=== PATIENT | male | born 1975 | race Caucasian/White ===

== ENCOUNTER 2019-02-18 10:43 | Emergency (ER) | payer BC, OTHER ==
[2019-02-18 10:49] VITALS: BP 122/81; PULSE 72; TEMP 98.1; BMI 25.4
--- NOTE | 2019-02-18 11:19 | PDOC ---
History of Present Illness - General Chief Complaint: Pain, Acute Stated Complaint: LOWER BACK Time Seen by Provider: 02/18/19 10:53 History Source: Patient Exam Limitations: Clinical Condition - History of Present Illness Initial Comments: 02/18/19 11:16 Patient with no significant past medical history present with complaint of 2 weeks history of bilateral lateral flank pain which has been intermittent. Patient was seen by PCP yesterday for symptoms and blood work was done which patient report all blood work was negative and his being scheduled for ultrasound which is scheduled for a week from now but could not wait and came to the emergency room. Denies burning with urination, bloody urine or dysuria. Denies nausea, vomiting, fever or chills. Patient is sexually active. Denies any other symptoms Timing/Duration: other (2 weeks) Past History - Past Medical History Allergies/Adverse Reactions: Allergies Allergy/AdvReac Type Severity Reaction Status Date / Time No Known Allergies Allergy Verified 02/18/19 10:46 Home Medications: Ambulatory Orders Methocarbamol [Robaxin -] 500 mg PO BID #14 tablet 02/18/19 Naproxen 500 mg PO BID PRN #20 tablet 02/18/19 - Suicide/Smoking/Psychosocial Hx Smoking History: Never smoked Review of Systems - Review of Systems Able to Perform ROS?: Yes Is the patient limited Nepali proficient: No Constitutional: No: Chills, Fever, Malaise HEENTM: No: Symptoms Reported Respiratory: No: Symptoms reported Cardiac (ROS): No: Symptoms Reported : Yes: Symptoms Reported, See HPI, Flank Pain (b/l flank pain). No: Burning, Dysuria, Discharge, Frequency, Hematuria, Urgency Musculoskeletal: Yes: Symptoms Reported, See HPI, Muscle Pain (b/l lateral side lower back pain) Integumentary: No: Symptoms Reported Neurological: No: Symptoms reported, Numbness, Paresthesia, Tingling All Other Systems: Reviewed and Negative *Physical Exam - Vital Signs Last Vital Signs Temp Pulse Resp BP Pulse Ox 98.1 F 72 16 122/81 99 02/18/19 10:43 02/18/19 10:43 02/18/19 10:43 02/18/19 10:43 02/18/19 10:43 - Physical Exam Comments: 02/18/19 11:14 GENERAL: Well developed, well nourished. Awake and alert. No acute distress. HEENT: Normocephalic, atraumatic. PERRLA, EOMI. No conjunctival pallor. Sclera are non-icteric. Moist mucous membranes. Oropharynx is clear. NECK: Supple. Full ROM. CARDIOVASCULAR: Regular rate and rhythm. No murmurs, rubs, or gallops. Distal pulses are 2+ and symmetric. PULMONARY: No evidence of respiratory distress. Lungs clear to auscultation bilaterally. No wheezing, rales or rhonchi. ABDOMINAL: Soft. Non-tender. Non-distended. No rebound or guarding. No organomegaly. Normoactive bowel sounds. MUSCULOSKELETAL Normal range of motion at all joints. Mild tenderness to bilateral flank area and the lower lumbar spine on lateral side. No CVA tenderness bilateral. SKIN: Warm and dry. Normal capillary refill. No rashes. No jaundice. NEUROLOGICAL: Alert, awake, appropriate. Gait is normal without ataxia. PSYCHIATRIC: Cooperative. Good eye contact. Appropriate mood General Appearance: Yes: Nourished, Appropriately Dressed. No: Apparent Distress ED Treatment Course - RADIOLOGY Radiology Studies Ordered: Category Date Time Status SPIRAL- RENAL-STONE CT [CT] Stat CT Scan 02/18/19 10:58 Ordered Medical Decision Making - Medical Decision Making 02/18/19 11:17 Patient with no significant past medical history present with complaint of 2 weeks history of bilateral lateral flank pain which has been intermittent. Patient was seen by PCP yesterday for symptoms and blood work was done which patient report all blood work was negative and his being scheduled for ultrasound which is scheduled for a week from now but could not wait and came to the emergency room. Denies burning with urination, bloody urine or dysuria. Denies nausea, vomiting, fever or chills. Patient is sexually active. Denies any other symptoms Exam significant for mild tenderness to lateral aspect of bilateral flank area with no abdominal tenderness. No midline spine tenderness. No CVA tenderness. Symptoms likely muscle skeletal pain versus renal stone versus STI. UA, urine culture and urine GC and chlamydia tests ordered. Spiral CT ordered to evaluate for kidney stone. Treat based on imaging lab results 02/18/19 12:43 UA wnl. Ucx pending. Abd/pelvis CT unremarkale. Patient symptoms likely muscle pain and will be discharged on naproxen and robaxin with PCP follow-up *DC/Admit/Observation/Transfer Diagnosis at time of Disposition: Muscle pain, lumbar - Discharge Dispostion Disposition: HOME Condition at time of disposition: Stable Decision to Admit order: No - Prescriptions Prescriptions: Methocarbamol [Robaxin -] 500 mg PO BID #14 tablet Naproxen 500 mg PO BID PRN #20 tablet PRN Reason: Back Pain - Referrals - Patient Instructions Printed Discharge Instructions: DI for Low Back Pain Additional Instructions: Your urine labs and CAT scan was normal. The symptoms likely caused from muscle pain. Take prescribed medication as needed for pain. Follow-up back with primary care - Post Discharge Activity
[2019-02-18 11:59] LABS: URINE APPEARANCE CLEAR; URINE BILIRUBIN NEGATIVE (NEGATIVE); URINE COLOR YELLOW; URINE GLUCOSE (UA) NEGATIVE (NEGATIVE); URINE KETONE NEGATIVE (NEGATIVE); URINE LEUK ESTERASE NEGATIVE (NEGATIVE); URINE NITRITE NEGATIVE (NEGATIVE); URINE PROTEIN NEGATIVE (NEGATIVE); URINE UROBILINOGEN 0.2 mg/dL (0.2-1.0)
== END 2019-02-18 12:45 | disposition home or self-care (01) ==
LOC: JERFT 10:43
DX: M54.5 Low back pain (principal)
CPT/HCPCS: 36415; 74176-TC; 81003; 87086; 87491; 87591; 99281-25

== ENCOUNTER 2019-05-18 19:44 | Emergency (ER) | payer OTHER ==
[2019-05-18 19:51] VITALS: TEMP 98.1; BMI 24.3
--- NOTE | 2019-05-18 20:11 | PDOC ---
History of Present Illness - General Chief Complaint: Pain Stated Complaint: ABD PAIN History Source: Patient Exam Limitations: No Limitations - History of Present Illness Initial Comments: 05/18/19 20:44 Sebastian Velásquez is an otherwise healthy 43M with known history of elevated creatinine of unknown etiology presenting with a few weeks of generalized abdominal pain, palpitations, and nausea. Patient reports that he was last seen in January at [facility] ED for similar presentation of abdominal/flank pain, was evaluated and found nothing. F/u with PMD, told he has elevated Cr. Was told that he was taking too much creatine/ weight-lifting and drinking too much alcohol as cause of LINDSEY. Has appointment with nephro next month for further evaluation. For the last 2 weeks, has been having waxing/waning abdominal/flank pain, described as a point tenderness on both sides at the apex of the rib cage, as well as a tightness around the umbilicus. Has had some nausea without vomiting, and sensation of palpitations in his middle chest that come and go. No chest pain, SOB, or palpitations at this time, but abdominal pain occurs with movement and pushing on rib cage. Denies any cardiac history or FH cardiac disease. Denies abd surgery, denies history of renal stones or urinary symptoms , denies constipation/diarrhea. Abdominal pain is unrelated to meals, no vomiting. No other PMH or daily medications taken. Denies alcohol/tobacco/drug use, quit using alcohol after being told it may contribute to elevated Cr. Denies anabolic steroid use or excessive exercise, says he lifts weights at the gym 2x per week. 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 Denies numbness or swelling in his legs. Says he came to ED today out of concern for his multiple symptoms that could not wait for PMD evaluation tomorrow. Past History - Past Medical History Allergies/Adverse Reactions: Allergies Allergy/AdvReac Type Severity Reaction Status Date / Time No Known Allergies Allergy Verified 02/18/19 10:46 Home Medications: Ambulatory Orders Methocarbamol [Robaxin -] 500 mg PO BID #14 tablet 02/18/19 Naproxen 500 mg PO BID PRN #20 tablet 02/18/19 COPD: No - Immunization History Immunization Up to Date: Yes - Psycho Social/Smoking Cessation Hx Smoking History: Never smoked Hx Alcohol Use: No Drug/Substance Use Hx: Yes Review of Systems - Review of Systems Able to Perform ROS?: Yes Constitutional: No: Chills, Fever, Malaise, Weakness HEENTM: No: Blurred Vision, Recent change in vision, Throat Pain, Throat Swelling, Difficulty Swallowing Respiratory: No: Cough, Shortness of Breath, Stridor, Wheezing, Productive cough Cardiac (ROS): Yes: Palpitations. No: Lightheadedness, Syncope ABD/GI: Yes: Nausea, Abdominal cramping, Other (pain under ribs both sides). No : Constipated, Diarrhea, Poor Appetite, Poor Fluid Intake, Vomiting : Yes: Flank Pain. No: Burning, Dysuria, Discharge, Frequency, Hematuria, Incontinence, Urgency Musculoskeletal: No: Symptoms Reported Integumentary: No: Symptoms Reported Neurological: Yes: Headache. No: Seizure, Tingling, Weakness, Dizziness Endocrine: No: Symptoms Reported Hematologic/Lymphatic: No: Symptoms Reported All Other Systems: Reviewed and Negative *Physical Exam - Vital Signs Last Vital Signs Temp Pulse Resp BP Pulse Ox 98.1 F 100 H 19 106/77 99 05/18/19 19:47 05/18/19 19:47 05/18/19 19:47 05/18/19 19:47 05/18/19 19:47 - Physical Exam General Appearance: Yes: Nourished, Appropriately Dressed, Other (healthy- appearing male, in no acute distress, lying comfortably in bed drinking water, observed standing and walking to bathroom without issue). No: Apparent Distress HEENT: positive: EOMI, SHAISTA, Normal ENT Inspection, Normal Voice, Symmetrical, Pharynx Normal, Hearing Grossly Normal. negative: Scleral Icterus (R), Scleral Icterus (L), Muffled/Hoarse voice, Pharyngeal Erythema, Tonsillar Exudate, Tonsillar Erythema, Rhinorrhea, Excessive drooling, Thrush Neck: positive: Trachea midline, Normal Thyroid. negative: Tender, Rigid, Supple, Lymphadenopathy (R), Lymphadenopathy (L) Respiratory/Chest: positive: Lungs Clear, Normal Breath Sounds. negative: Chest Tender, Respiratory Distress, Accessory Muscle Use, Labored Respiration, Decreased Breath Sounds, Crackles, Rales, Rhonchi, Stridor, Wheezing Cardiovascular: positive: Regular Rhythm, Regular Rate (HR 90 on exam) Gastrointestinal/Abdominal: positive: Normal Bowel Sounds, Tender (periumbilical , single point tenderness to musculature under the apex of the costal margin bilaterally.), Soft. negative: Pulsatile Mass, Distended, Guarding, Rebound, Hernia Musculoskeletal: positive: Normal Inspection. negative: CVA Tenderness Extremity: positive: Normal Capillary Refill, Normal Inspection, Normal Range of Motion. negative: Tender, Cyanosis, Pedal Edema, Swelling, Calf Tenderness Integumentary: positive: Normal Color, Dry, Warm. negative: Cyanotic, Erythema Neurologic: positive: Alert, Normal Mood/Affect, Normal Response, Motor Strength 5/5, Other (observed standing and walking, gait normal, flexion and extension at waist without issue or pain elicited) ED Treatment Course - LABORATORY CBC & Chemistry Diagram: 05/18/19 21:09 05/18/19 21:09 Medical Decision Making - Medical Decision Making 05/18/19 20:44 Sebastian Velásquez is an otherwise healthy 43M presenting with a few weeks of generalized abdominal pain, palpitations, and nausea. Presentation is concerning for a new cardiac arrhythmia vs. PE given tachycardia and extensive driving history. No cardiac history. Abdominal pain is unspecified, ddx includes renal calculus, pancreatitis, gastritis, muscle spasm, costochondritis, biliary stones. No abdominal surgery history concerning for SBO. Most likely MSK etiology. Evaluating via: CMP CBC CP Lipase D-dimer ECG CXR UA/UC Giving 1L NS bolus and Zofran for nausea. Cannot PERC out 2/2 tachy + Wells low risk = good candidate for D-dimer 05/18/19 21:52 D-dimer negative. 05/18/19 21:54 Preliminary read of CXR shows no evidence of widened mediastinum, normal appearing heart, no evidence of PNA. 05/18/19 22:12 CBC no abnormalities CMP no abnormalities other than Cr 1.4, BUN 21. No priors. UA clean. Unclear etiology of elevated Cr at this time, s/p 1L NS bolus already. 05/18/19 22:43 ECG shows NSR with HR 60, QTc 408, isolated V2 T-wave inversion. 05/18/19 23:00 Patient re-evaluted. Presentation is highly consistent with MSK etiology given exacerbation with movement and tenderness to palpation of specific muscles. Negative D-dimer and troponin with normal-appearing ECG gives low concern for cardiac disease requiring urgent treatment. No intervention needed at this time. Will d/c home with PMD and nephro f/u as scheduled. Discharge - Discharge Information Problems reviewed: Yes Clinical Impression/Diagnosis: Palpitations Abdominal pain Qualifiers: Abdominal location: generalized Qualified Code(s): R10.84 - Generalized abdominal pain Condition: Stable Disposition: HOME - Admission No - Follow up/Referral Referrals: Ezio Pierce MD [Staff Physician] - - Patient Discharge Instructions Patient Printed Discharge Instructions: DI for Arrhythmias Additional Instructions: Today you were evaluated for palpitations and abdominal pain. We did blood labs and found no evidence of heart attack, anemia, or electrolyte abnormalities. Your creatinine was 1.4, with a BUN of 21, which is consistent with what you mentioned in the past. Your urine does not show any evidence of infection. You ECG is grossly normal. Your back and abdominal pain is consistent with muscle strain. The treatment for this is muscle rest, NSAID medications such as Motrin or Aleve as prescribed on the bottle. Avoid heavy lifting and any activities that strain your back or belly. Please follow-up with your primary doctor in the next 3 days and kidney specialist as planned to further figure out what the cause of your kidney injury. We have included a referral to see Dr. Pierce if you do not have a kidney doctor. If you experience worsening pain, become unable to walk, have chest pain, shortness of breath, nausea, vomiting, or any other new or concerning symptoms, please return to the emergency room. - Post Discharge Activity
[2019-05-18] MEDS ORDERED: SODIUM CHLORIDE 0.9% 500 ML INFUS.BAG IV ONE (20:35)
[2019-05-18] MEDS ORDERED: ONDANSETRON 4 MG/2 ML VIAL IVPUSH ONE (20:35)
[2019-05-18] MEDS ORDERED: ONDANSETRON 4 MG/2 ML VIAL ONE (20:41)
--- NOTE | 2019-05-18 21:14 | PDOC ---
Documentation entered by Lissett Zamora SCRIBE, acting as scribe for Renetta Cabrera MD. Renetta Cabrera MD: This documentation has been prepared by the Noah falk Nirvannie, SCRIBE, under my direction and personally reviewed by me in its entirety. I confirm that the documentation accurately reflects all work, treatment, procedures, and medical decision making performed by me. Attending Attestation - Resident Resident Name: Jero Germain - ED Attending Attestation I have performed the following: I have examined & evaluated the patient, The case was reviewed & discussed with the resident, I agree w/resident's findings & plan - HPI HPI: 05/18/19 21:07 43-year-old male presents with concern of intermittent palpitations for several weeks and bilateral flank pain. He denies any recent trauma but he does lift weights regularly. He does drive almost 200 miles a day for work. - Physicial Exam PE: 05/18/19 21:11 wnwd 43 yo male p/e palpations head ncat neck supple, no jvd lungs cta b/l cvs [id number] abd no rebound,no guarding ext no edema skin warm and dry neuro axox3 - Medical Decision Making 05/18/19 22:40 43 yo male p/w concerns of b/l intercoastal soreness,denies any trauma. He does lift weights but he has always lifted weights and does usually not have any pain afterwards 05/19/19 02:32 labs wnl ekg nsr negative troponin pt d/c home
[2019-05-18 21:26] LABS: BASO % 0.8 % (0-2.0); EOS % 3.2 % (0-4.5); HEMOGLOBIN 16.1 GM/dL (11.7-16.9); LYMPH % 39.6 % (8-40); MCH 31.9 pg (25.7-33.7); MCHC 34.2 g/dl (32.0-35.9); MEAN CELL VOLUME 93.3 fl (80-96); MEAN PLT VOLUME 8.9 fl (7.5-11.1); MONO % 8.5 % (3.8-10.2); NEUT % 47.9 % (42.8-82.8); PLATELET COUNT 188 K/MM3 (134-434); RBC 5.04 M/mm3 (4.00-5.60); RDW 12.5 % (11.9-15.9); WHITE BLOOD COUNT 6.9 K/mm3 (4.0-10.0)
[2019-05-18 22:03] LABS: URINE APPEARANCE CLEAR; URINE BILIRUBIN NEGATIVE (NEGATIVE); URINE COLOR YELLOW; URINE GLUCOSE (UA) NEGATIVE (NEGATIVE); URINE KETONE NEGATIVE (NEGATIVE); URINE LEUK ESTERASE NEGATIVE (NEGATIVE); URINE NITRITE NEGATIVE (NEGATIVE); URINE PROTEIN NEGATIVE (NEGATIVE)
[2019-05-18 22:10] LABS: BILIRUBIN,TOTAL 0.9 mg/dL (0.2-1); BLOOD UREA NITROGEN 21.8 mg/dL (7-18); CALCIUM 8.9 mg/dL (8.5-10.1); CREATININE 1.4 mg/dL (0.55-1.3); POTASSIUM 4.3 mmol/L (3.5-5.1)
[2019-05-18 22:54] VITALS: BP 116/74; PULSE 94
--- NOTE | 2019-05-19 15:54 | EKG ---
Test Reason : Blood Pressure : / mmHG Vent. Rate : 060 BPM Atrial Rate : 060 BPM P-R Int : 140 ms QRS Dur : 090 ms QT Int : 408 ms P-R-T Axes : 069 046 054 degrees QTc Int : 408 ms NORMAL SINUS RHYTHM NORMAL ECG NO PREVIOUS ECGS AVAILABLE Confirmed by MICHAELA ROTH MD ([id number]) on 05/19/2019 3:54:11 PM Referred By: Confirmed By:MICHAELA ROTH MD
== END 2019-05-18 22:54 | disposition home or self-care (01) ==
LOC: JER 19:44
PROC: 3E033GC Introduction of Other Therapeutic Substance into Peripheral Vein, Percutaneous Approach (ICD-10-PCS; principal; 2019-05-18)
DX: R00.2 Palpitations (principal); R10.84 Generalized abdominal pain
CPT/HCPCS: 36415; 71045-TC-FY; 80053; 81003; 82550; 83690; 84443; 84484; 85025; 85379; 85730; 87086; 93005; 93010; 99284-25